=== PATIENT | female | born 1995 | race African-American/Black ===

== ENCOUNTER 2023-07-25 15:43 | Outpatient (CLI) | payer MEDICAID, SELFPAY ==
--- NOTE | 2023-07-25 14:20 | DI.RAD_ITS ---
Exam(s) XR WRIST LT COMPLETE EXAM: XR WRIST LT COMPLETE CLINICAL HISTORY: LEFT WRIST PAIN. TECHNIQUE: 2D digital imaging was performed of the left wrist. Three images were obtained. PA, obl ique and lateral views were obtained. COMPARISON: CR XR WRIST LEFT 3 OR MORE VIEWS from 07/16/2023 FINDINGS: BONES: There is an acute nondisplaced intra-articular fracture of the distal left radius. No bony de structive lesion is seen. JOINTS: The carpal bones are normally aligned. SOFT TISSUE: Normal. IMPRESSION: Nondisplaced intra-articular distal left radial fracture. DATA REPOSITORY: RADIATION DOSE DELIVERED:
== END 2023-07-25 15:44 | disposition home or self-care (01) ==
LOC: DIORS 15:44
PROVIDERS: Visit Provider Physician Assistant
DX: M25.532 Pain in left wrist (principal); S52.571A Other intraarticular fracture of lower end of right radius, initial encounter for closed fracture; X58.XXXA Exposure to other specified factors, initial encounter
CPT/HCPCS: 73110

== ENCOUNTER 2023-08-01 14:33 | Outpatient (CLI) | payer MEDICAID, SELFPAY ==
--- NOTE | 2023-08-01 10:45 | DI.RAD_ITS ---
Exam(s) XR WRIST LT COMPLETE EXAM: XR WRIST LT COMPLETE CLINICAL HISTORY: F/U LEFT DISTAL RADIUS FX. TECHNIQUE: 2D digital imaging was performed. Three views. COMPARISON: CR XR WRIST LT COMPLETE from 07/25/2023 FINDINGS: BONES: There has been some interval healing of previously noted intra-articular fracture of the dista l radius. No new fracture is present. No bony destructive lesion is seen. JOINTS: The carpal bones are normally aligned. SOFT TISSUE: Normal. IMPRESSION: healing distal radial fracture. DATA REPOSITORY: RADIATION DOSE DELIVERED:
== END 2023-08-01 14:34 | disposition home or self-care (01) ==
LOC: DIORS 14:34
PROVIDERS: Visit Provider Student in an Organized Health Care Education/Training Program
DX: S52.571D Other intraarticular fracture of lower end of right radius, subsequent encounter for closed fracture with routine healing (principal); X58.XXXD Exposure to other specified factors, subsequent encounter
CPT/HCPCS: 73110